=== PATIENT | female | born 1960 | race Hispanic/Latino ===

== ENCOUNTER 2017-10-05 10:49 | Emergency (ER) | payer MEDICAID, OTHER ==
[2017-10-05 10:49] VITALS: BMI 23.3
[2017-10-05 11:00] VITALS: BP 136/84; PULSE 84; RESP 16; TEMP 97.3; O2SAT 99
[2017-10-05] MEDS ORDERED: Lidocaine 5% Patch TD STA (11:08)
--- NOTE | 2017-10-05 11:14 | C.PDOC ---
History Of Present Illness 57 year old female presents to the ED for evaluation of acute exacerbation of chronic right lower back pain x 4 days. Patient states symptoms are similar to prior, but stronger than usual. Denies trying pain medicine or trauma. Patient states pain is in right lower back with radiation to right buttock. Patient denies associated weakness/numbness or any other symptoms at this time. ACUTE EXAC CHRONIC R LOWER BACK PAIN X 4 DAYS. SIM TO PRIOR, STRONGER THAN USUAL. NO PAIN MEDS TRIED. NO TRAUMA. R LOWER BACK, RADIATION R BUTTOCK. NO ASSOC WEAK/ NUMB, OTHER SX EXAM MILD DIST NONTOXIC BACK LIMITED ROM DUE TO PAIN. +SPASM W TEND R LOWER BACK. NO SPINAL TEND. NEURO INTACT SKIN NEG REMAINDER NEG Time Seen by Provider: 10/05/17 11:03 Chief Complaint (Nursing): Back Pain History Per: Patient History/Exam Limitations: no limitations Onset/Duration Of Symptoms: Days (4) Current Symptoms Are (Timing): Still Present Quality Of Discomfort: "Pain" Associated Symptoms: denies: New Weakness, New Numbness Additional History Per: Patient Past Medical History Reviewed: Historical Data, Nursing Documentation, Vital Signs Vital Signs: Last Vital Signs Temp 97.3 F L 10/05/17 10:58 Pulse 84 10/05/17 10:58 Resp 16 10/05/17 10:58 BP 136/84 10/05/17 10:58 Pulse Ox 99 10/05/17 11:39 - Medical History PMH: Anxiety, HTN, Hypercholesterolemia Surgical History: No Surg Hx Family History: States: Unknown Family Hx - Social History Hx Tobacco Use: Yes Hx Alcohol Use: No Hx Substance Use: No - Immunization History Hx Tetanus Toxoid Vaccination: No Hx Influenza Vaccination: No Hx Pneumococcal Vaccination: No Review Of Systems Musculoskeletal: Positive for: Back Pain Neurological: Negative for: Weakness, Numbness Physical Exam - Physical Exam Appears: Non-toxic, Other (in mild distress) Skin: Normal Color, Warm, Dry Back: Decreased ROM (secondary to pain ), Muscle Spasm (with tenderness to right lower back), No Paraspinal Tenderness Extremity: Normal ROM, Capillary Refill (less than 2 seconds) Neurological/Psych: Oriented x3, Normal Speech, Normal Cognition Gait: Steady ED Course And Treatment O2 Sat by Pulse Oximetry: 99 (on RA) Pulse Ox Interpretation: Normal Progress Note: Flexeril PO, Lidoderm TD, NeurontinPO, and Toradol IM administered. Disposition Counseled Patient/Family Regarding: Diagnosis, Need For Followup, Rx Given - Disposition Referrals: YOUR,PMD [Other] Disposition: HOME/ ROUTINE Disposition Time: 11:14 Condition: IMPROVED Prescriptions: Cyclobenzaprine [Flexeril] 10 mg PO TID #15 tab Dexamethasone [Decadron] 12 mg PO ONCE #3 tab Gabapentin [Neurontin] 300 mg PO TID #30 cap Ibuprofen [Motrin] 600 mg PO Q6 #30 tab Lidocaine 5% [Lidoderm] 1 ea TD PRN PRN #10 patch PRN Reason: Pain, Moderate (4-7) Instructions: Lumbar Radiculopathy (ED) Forms: [employer] (Mauritian), Work Excuse Print Language: [place] - Clinical Impression Clinical Impression: Sciatica - Scribe Statement The provider has reviewed the documentation as recorded by the Scribe (Debbie Lloyd) Provider Attestation: All medical record entries made by the Scribe were at my direction and personally dictated by me. I have reviewed the chart and agree that the record accurately reflects my personal performance of the history, physical exam, medical decision making, and the department course for this patient. I have also personally directed, reviewed, and agree with the discharge instructions and disposition.
[2017-10-05] MEDS ORDERED: Lidocaine 5% Patch TD ONE (11:17)
== END 2017-10-05 11:26 | disposition home or self-care (01) ==
LOC: C.ER 10:49
DX: M54.31 Sciatica, right side (principal)
CPT/HCPCS: 96372; 99283; J1885

== ENCOUNTER 2017-10-21 06:30 | Day surgery (SDC) | payer OTHER ==
[2017-10-21 06:50] VITALS: BMI 24.1
[2017-10-21] MEDS ORDERED: Lactated Ringer's 500 ML IV SCH (08:00)
[2017-10-21] MEDS ORDERED: Propofol 10 mg/ml Inj (20 ML) ONE ×2 (08:06→08:16)
[2017-10-21] MEDS ORDERED: Simethicone 40 mg/0.6 ml Liquid (30 ml) ONE (08:10)
[2017-10-21 08:51] VITALS: TEMP 97.9
[2017-10-21 09:34] VITALS: BP 116/77; PULSE 78; RESP 16; O2SAT 99
== END 2017-10-21 10:55 | disposition home or self-care (01) ==
LOC: C.ENDO 06:30
PROVIDERS: ATTEND Internal Medicine
DX: K21.9 Gastro-esophageal reflux disease without esophagitis (principal); R11.10 Vomiting, unspecified; Z86.010 Personal history of colon polyps; Z80.0 Family history of malignant neoplasm of digestive organs; R14.0 Abdominal distension (gaseous); F17.210 Nicotine dependence, cigarettes, uncomplicated; K59.09 Other constipation; R10.9 Unspecified abdominal pain; K31.819 Angiodysplasia of stomach and duodenum without bleeding; K29.70 Gastritis, unspecified, without bleeding
CPT/HCPCS: 43239; 88305; J2001; J2704; J7120

== ENCOUNTER 2018-01-02 06:06 | Day surgery (SDC) | payer OTHER ==
[2017-11-03 09:56] VITALS: BMI 24.1
[2018-01-02] MEDS ORDERED: Propofol 10 mg/ml Inj (20 ML) ONE ×2 (08:07→08:20)
--- NOTE | 2018-01-02 08:09 | CP.SDSHP ---
Same Day Surgery H & P - History Proposed Procedure: egd eus emr Pre-Op Diagnosis: esophageal nodule - Previous Medical/Surgical History Previous Surgical History: egd - Allergies Allergies: Allergies No Known Allergies Allergy (Verified 11/03/17 10:27) - Physical Exam General Appearance: nl Vital Signs: Vital Signs 01/02/18 06:46 Temperature 97.1 F L Pulse Rate 80 Respiratory 20 Rate Blood Pressure 125/86 O2 Sat by Pulse 97 Oximetry Mental Status: Alert & Oriented x3 Neuro: WNL Heart: WNL Lungs: WNL GI: WNL - {Optional Preform as Required} Abdomen: WNL - Impression Impression: esophageal nodule Pt. Evaluated Today:Candidate for Anesthesia & Procedure: Yes - Date & Time Date: 01/02/18 Time: 08:09 Short Stay Discharge - Short Stay Discharge Admitting Diagnosis/Reason for Visit: EOSINOPHILIC ESOPHAGITIS Disposition: HOME/ ROUTINE
[2018-01-02] MEDS ORDERED: Simethicone 40 mg/0.6 ml Liquid (30 ml) ONE ×2 (08:19→08:20)
[2018-01-02 09:18] VITALS: TEMP 98
[2018-01-02 09:49] LABS: BASO % 0.5 % (0.0-2.0); EOS # 0.1 K/uL (0.0-0.7); EOS % 2.4 % (0.0-4.0); HEMOGLOBIN 12.5 g/dL (11.0-16.0); LYMPH # 1.7 K/uL (1.0-4.3); LYMPH % 27.8 % (20.0-40.0); MEAN CELL VOLUME 91.3 fL (81.0-99.0); MEAN CORPUSCULAR HEMOGLOBIN 30.5 pg (27.0-31.0); MEAN CORPUSCULAR HGB CONC 33.4 g/dL (33.0-37.0); MEAN PLATELET VOLUME 7.1 fL (7.2-11.7); MONO # 0.6 K/uL (0.0-0.8); MONO % 10.5 % (0.0-10.0); NEUT # 3.6 K/uL (1.8-7.0); NEUT % 58.8 % (50.0-75.0); RBC 4.11 Mil/uL (3.80-5.20); RED CELL DISTRIBUTION WIDTH 15.7 % (11.5-14.5); WHITE BLOOD COUNT 6.1 K/uL (4.8-10.8)
[2018-01-02 10:02] LABS: ALB/GLOB RATIO 1.2 (1.0-2.1); ALBUMIN 3.9 g/dL (3.5-5.0); ALT/SGPT 42 U/L (9-52); AST/SGOT 30 U/L (14-36); BLOOD UREA NITROGEN 7 mg/dL (7-17); CALCIUM 8.8 mg/dl (8.6-10.4); GFR AFRICAN-AMERICAN > 60; GFR NON-AFRICAN AMERICAN > 60
[2018-01-02 10:20] VITALS: BP 130/80; PULSE 84; RESP 20; O2SAT 99
[2018-01-04 04:31] LABS: GASTRIN 49 pg/mL (<=100)
== END 2018-01-02 10:05 | disposition home or self-care (01) ==
LOC: C.ENDO 06:06
PROVIDERS: ATTEND Internal Medicine
DX: K20.0 Eosinophilic esophagitis (principal); K22.9 Disease of esophagus, unspecified; K21.9 Gastro-esophageal reflux disease without esophagitis; R14.0 Abdominal distension (gaseous); R10.9 Unspecified abdominal pain; K29.70 Gastritis, unspecified, without bleeding; K44.9 Diaphragmatic hernia without obstruction or gangrene; K22.2 Esophageal obstruction
CPT/HCPCS: 36415; 43239; 80053; 82941; 85025; 88305; 88312; 88313; 88342; J2001; J2704; J3010